=== PATIENT | female | born 1995 | race Caucasian/White ===

== ENCOUNTER 2020-09-02 14:03 | Emergency (ER) | payer OTHER, SELFPAY ==
[2020-09-02 14:16] VITALS: BP 121/75; PULSE 75; RESP 18; TEMP 36.4; O2SAT 98; BMI 30.4
--- NOTE | 2020-09-02 14:47 | W.ED.SOB ---
HPI - SOB/Dyspnea General: Chief Complaint: Shortness of Breath/Dyspnea Stated Complaint: COVID positive, chest pain Time Seen by Provider: 09/02/20 14:32 History of Present Illness: HPI Narrative: 25-year-old female patient presents to the emergency department with 24-hour complaint of shortness of breath. She reports shortness of breath only with exertion. She reports fever resolved 3 days ago. States eating and drinking okay. She denies sore throat, nasal drainage, or ear pain. She reports cough, nonproductive, denies wheezing. She reports concern of her oxygen saturation and shortness of breath. MD elicited complaint: shortness of breath and cough Pertinent past history: other (COVID positive, 08/27/2020) Context: recent illness Timing: intermittent and progressively worsening Severity: moderate Exacerbating factors: exertion Relieving factors: rest Associated symptoms: Reports other (extremity swelling/pain); Deny abdominal pain, chest congestion, chest pain, diaphoresis, fever(s), hemoptysis, lightheadedness, nausea, palpitations, syncope or vomiting Treatment prior to arrival: none Review of Systems General: Reports: 10 or more systems reviewed and unremarkable except in HPI and below Const: Reports: fatigue and malaise; Denies: fever(s), chills or diaphoresis Eyes: Denies: blurry vision or eye redness ENMT: Denies: throat pain, dental pain or disequilibrium Card: Reports: dyspnea on exertion; Denies: chest pain, palpitations, irregular heart rhythm, lightheadedness or syncope Resp: Reports: non-productive cough; Denies: dyspnea, productive cough, wheezing, pain on inspiration, hemoptysis or chest congestion GI: Denies: abdominal pain, nausea, vomiting or heartburn : Denies: difficulty voiding or dysuria Musc: Denies: back pain Skin/Breast: Denies: rash or pruritus Neuro: Denies: headache(s), weakness in extremities or behavioral changes Psych: Denies: anxiety or depression Bryan/Lymph: Denies: easy bruising [facility] ED Female Reproductive History: Date of last menstrual period: 08/23/20 Physical Exam Const: COMMON NORMALS: no acute distress, patient oriented x3, healthy appearing and alert GENERAL APPEARANCE: cooperative, comfortable and well hydrated HENMT: COMMON NORMALS: normocephalic, atraumatic, external ears normal, Normal external nose present and moist oral mucous membranes HEAD & SCALP: normocephalic and atraumatic FACE & SINUS: normal facial exam, sinuses nontender and face symmetric NOSE: Normal external nose present EXTERNAL EAR: Yes external ears normal MOUTH: Normal oral and palatal mucosa present THROAT: posterior oropharynx normal Eye: COMMON NORMALS: Equal, round and reactive pupils present and EOMs intact bilaterally GENERAL EYE: appearance normal, both eyes and all related structures PUPIL: Yes Equal, round and reactive pupils present Neck/C-Spine: COMMON NORMALS: full ROM and no lymphadenopathy GENERAL: Yes normal visual inspection and Yes trachea midline CERVICAL SPINE: Yes cervical ROM normal Lymph: LYMPHATIC: no lymphadenopathy noted Chest: COMMONS NORMALS: normal inspection of the chest and normal palpation of entire chest wall Resp: COMMON NORMALS: normal respiratory effort and clear to auscultation bilaterally AUSCULTATION: clear to auscultation bilaterally, no rhonchi, no wheezes and lung sounds not diminished Cardio: COMMON NORMALS: regular rhythm, S1 normal heart sound present, S2 normal heart sound present and Peripheral pulses 2+ throughout RHYTHM: regular rhythm HEART SOUNDS: S1 normal heart sound present and S2 normal heart sound present PERIPHERAL PULSES: Peripheral pulses 2+ throughout GI: COMMON NORMALS: Soft to palpation and non-tender INSPECTION: Yes normal to inspection PALPATION: Yes Soft to palpation : COMMON NORMALS: Yes no CVA tenderness BLADDER/KIDNEY EXAM: Yes no CVA tenderness Back/Pelvis: COMMON NORMALS: no CVA tenderness and thoracic and lumbar spine normal to inspection Extremity: COMMON NORMALS: normal to inspection and capillary refill normal Neuro: COMMON NORMALS: patient oriented x3 and no focal motor deficits SENSORIUM/ORIENTATION: Yes alert Psych: COMMON NORMALS: mental status grossly normal, Normal thought process present and cooperative ACTIVITY/MOTOR BEHAVIOR: Yes appropriate eye contact THOUGHT PROCESS: Normal thought process present Skin: COMMON NORMALS: no rashes or lesions noted and turgor normal GENERAL SKIN EXAM: no rashes or lesions noted and turgor normal Course ED course: 25-year-old female patient presents to the emergency department with COVID diagnosis on 08/27/2020. Her concern is shortness of breath with exertion. She reports trying to take care of ADLs at home and her family with shortness of breath. Fever resolved several days prior. O2 saturation on continuous pulse ox 99 to 100% on room air. She is not in distress. She does not want to stay in the hospital or have further examination/imaging completed. Option of pulse ox device here in the emergency department discussed, she agrees to go home with oxygen device and monitor her oxygen at home. She was advised to return to the emergency department if she developed hypoxia, oxygen saturation less than 90 to 91%. She was also sent home with an inhaler to help with shortness of breath. She denied nausea vomiting, able to tolerate oral fluids and food. She is requesting work note, one was provided for her with follow-up with her primary care provider to release to full duty. She was advised to return to the emergency department if she developed hemoptysis, worsening/progressive shortness of breath. Vital Signs: Vital signs: Vital Signs Temperature 97.8 F 09/02/20 14:57 Pulse Rate 70 09/02/20 14:57 Respiratory Rate 18 09/02/20 14:57 Blood Pressure 121/75 09/02/20 14:16 Pulse Oximetry 98 09/02/20 14:57 Discharge Plan Discharge Patient Disposition: Home Clinical Impression: COVID-19 virus detected, Acute bronchitis, viral Condition: Stable Prescriptions: New Ventolin HFA 90 mcg/actuation HFA aerosol inhaler 2 puff INHALATION Q4H PRN (Reason: shortness of breath or wheezing) Qty: 18 RF: 0 Discharge Orders: Discharge Order (Routine); Ordered 09/02/20 Ordered By: Елена Slade Discharge Diet: Usual diet Discharge Activity: Limit activity as instructed Patient Instructions: Viral Syndrome (ED) Activity Restrictions/Additional Instructions: Portable oxygen sensor has been given to you here in the emergency department, monitor oxygen saturation frequently. If oxygen saturation drops to 90%, and does not improve with deep breathing, you will need to return to the emergency department for evaluation. Limit activity, you will need to rest for the next several days. If you develop worsening shortness of breath, chest pain, difficulty breathing, difficulty catching her breath, you will need to return to the emergency department for further evaluation You may use Ventolin inhaler, 1 to 2 puffs as needed for shortness of breath/cough. Follow-up with your primary care provider in 3 to 4 days for your work release. You will need to remain in quarantine until follow-up with your primary care provider. Stand Alone Forms: Work/School Release Discharge Date/Time: 09/02/20 15:06 Coding Level of Care Code ED Truck Repair Supervisor for Chg Fwd Exam Comprehensive
[2020-09-02 14:57] VITALS: PULSE 70; RESP 18; TEMP 36.6; O2SAT 98
--- NOTE | 2020-09-03 08:20 | DCPLANNER ---
operations and maintenance manager had message to speak with patient about getting established with a primary care physician. operations and maintenance manager called , unable to speak with patient at this time, a voicemail was left for patient to return case folder phone call.
== END 2020-09-02 15:06 | disposition home or self-care (01) ==
PROVIDERS: Emergency Provider Nurse Practitioner Family
DX: U07.1 COVID-19 (principal); J20.8 Acute bronchitis due to other specified organisms
CPT/HCPCS: 12345; 99281; 99282

== ENCOUNTER 2021-06-14 11:38 | Emergency (ER) | payer OTHER, MEDICAID, SELFPAY ==
[2021-06-14 11:47] VITALS: BP 120/60; PULSE 90; RESP 18; TEMP 36.9; O2SAT 98; BMI 31.9
[2021-06-14 11:55] VITALS: BP 123/77; PULSE 105; RESP 16; O2SAT 97
[2021-06-14 12:33] LABS: Basophils % 0.4 %; Eosinophils # 0.1 10^3/uL (0.0-0.8); Eosinophils % 0.9 %; Hematocrit 36.8 % (37.0-47.0); Hemoglobin 12.1 g/dL (11.5-15.3); Lymphocytes # 1.1 10^3/uL (0.8-4.8); Lymphocytes % 10.3 %; Mean Corpuscular HGB Conc 32.9 g/dL (30.0-36.0); Mean Corpuscular Hemoglobin 27.4 pg (28.0-34.0); Mean Corpuscular Volume 83.4 fL (81-99); Mean Platelet Volume 11.3 fL (7.4-10.4); Monocytes # 0.6 10^3/uL (0.2-0.9); Monocytes % 5.4 %; Neutrophils # 8.41 10^3/uL (1.8-7.7); Neutrophils % 82.7 %; Nucleated Red Blood Cells % 0 %; Platelet Count 221 10^3/cmm (130-400); Red Blood Count 4.41 10^6/uL (4.1-5.3); Red Cell Distribution Width 13.6 % (12.1-15.1); White Blood Count 10.2 10^3/uL (4.0-10.0)
[2021-06-14 12:49] LABS: Alanine Aminotransferase 6 U/L (0-33); Albumin Level 3.3 g/dL (3.5-5.2); Alkaline Phosphatase 60 IU/L (35-105); Anion Gap 13.7 (5-19); Aspartate Amino Transferase 10 U/L (0-32); Blood Urea Nitrogen 6 mg/dL (6-20); Calcium 8.3 mg/dL (8.5-10.5); Carbon Dioxide 20 mmol/L (22-29); Chloride 104 mmol/L (98-107); Creatine Phosphokinase 25 U/L (26-192); Globulin 2.5 g/dL (1.3-4.6); Glomerular Filtration Rate 191.5 mL/min (90-130); Glucose 122 mg/dL (65-115); Osmolality Calculated 277 mOsm/kg (285-295); Potassium 3.7 mmol/L (3.5-5.1); Sodium 134 mmol/L (136-145); Total Bilirubin 0.3 mg/dL (0.15-1.2); Total Protein 5.8 g/dL (6.6-8.7)
--- NOTE | 2021-06-14 12:49 | ED_ITS ---
HPI - Seizure General: Chief Complaint: Seizure Stated Complaint: SEIZURE ACTIVITY/ 23 WKS Time Seen by Provider: 06/14/21 12:05 History of Present Illness: HPI Narrative: 25-year-old female presents emergency room she had 2 near syncopal episodes at home and then actually did have an episode where she passed out. She is about 23 weeks so she went to [facility] where she sees Dr. Zarco. She had another episode of a syncopal episode while sitting there is a question of seizure-like activity. Said she felt like she could not breathe and then passed out. She was disoriented briefly afterward but could remember all of the events did not really sound like she had a postictal state. No loss of bowel or bladder control she denies any vaginal discharge or bleeding. No fever sweats or chills. MD complaint: possible seizure Onset (ago): hour(s) Description of Episode: loss of consciousness Witnessed: Yes - by Bystander Trauma: No Seizure History: No Place: CLINIC Possible Precipitating Event: none Associated symptoms: Deny chest pain, chills, confusion, cough, diaphoresis, fever(s), anorexia, malaise, rash, short of breath, syncope or weakness Treatments prior to arrival: none Review of Systems Const: Denies: fever(s), chills, malaise or diaphoresis ENMT: Denies: throat pain, ear or mastoid pain, nasal discharge or nasal congestion Card: Denies: chest pain or syncope Resp: Denies: dyspnea, productive cough or non-productive cough GI: Denies: abdominal pain, nausea, vomiting, hematemesis, coffee ground emesis, diarrhea, constipation, bloating, hematochezia or melena : Denies: flank pain, difficulty voiding, dysuria, urinary frequency or urinary urgency Skin/Breast: Denies: rash or pruritus Neuro: Denies: confusion [facility] ED Female Reproductive History: Date of last menstrual period: 01/03/21 Physical Exam Const: COMMON NORMALS: no acute distress GENERAL APPEARANCE: cooperative and comfortable ORIENTATION/CONSCIOUSNESS: Yes awake, Yes oriented to person, Yes oriented to place and Yes oriented to time HENMT: COMMON NORMALS: normocephalic, atraumatic and hearing grossly normal bilaterally HEAD & SCALP: normocephalic and atraumatic Neck/C-Spine: COMMON NORMALS: no JVD Resp: COMMON NORMALS: normal respiratory effort, No retractions, No use of accessory muscles and clear to auscultation bilaterally AUSCULTATION: clear to auscultation bilaterally Cardio: COMMON NORMALS: no JVD, regular rate, regular rhythm and No murmurs present (Cardio) RATE: regular rate RHYTHM: regular rhythm GI: COMMON NORMALS: Soft to palpation and No hepatosplenomegaly present AUSCULTATION: Yes normoactive bowel sounds PALPATION: Yes Soft to palpation, No Tenderness to palpation present (GI), No Guarding due to palpation present (GI) and Yes No hepatosplenomegaly present Extremity: COMMON NORMALS: normal to inspection, capillary refill normal, no clubbing, cyanosis or edema, no calf tenderness and no pedal edema Neuro: SENSORIUM/ORIENTATION: Yes oriented to person, Yes oriented to place and Yes oriented to time Skin: COMMON NORMALS: no rashes or lesions noted GENERAL SKIN EXAM: no rashes or lesions noted Course Vital Signs: Vital signs: Vital Signs Temperature 98.4 F 06/14/21 11:47 Pulse Rate 93 06/14/21 14:00 Respiratory Rate 14 06/14/21 14:00 Blood Pressure 111/63 06/14/21 14:00 Pulse Oximetry 99 06/14/21 14:00 MDM - Seizure MDM Narrative: Medical decision making narrative: She is feeling better. Wearing Goeden discharge home I suspect she had a syncopal episode she does normally sound like she had a postictal episode given her age I do not really want to start her on antiseizure medications. Will have her follow-up with her primary care doctor. Also going to get her started on a 48-hour Holter she reported some tachycardia at home on a monitoring watch. Lab Data: Labs: Lab Results 06/14/21 06/14/21 06/14/21 Range/Units 11:29 11:29 13:59 WBC 10.2 H (4.0-10.0) 10^3/ uL RBC 4.41 (4.1-5.3) 10^6/u L Hgb 12.1 (11.5-15.3) g/dL Hct 36.8 L (37.0-47.0) % MCV 83.4 (81-99) fL MCH 27.4 L (28.0-34.0) pg MCHC 32.9 (30.0-36.0) g/dL RDW 13.6 (12.1-15.1) % Plt Count 221 (130-400) 10^3/c mm MPV 11.3 H (7.4-10.4) fL Neut % (Auto) 82.7 % Lymph % (Auto) 10.3 % Dickens % (Auto) 5.4 % Eos % (Auto) 0.9 % Baso % (Auto) 0.4 % Neut # (Auto) 8.41 H (1.8-7.7) 10^3/u L Lymph # (Auto) 1.1 (0.8-4.8) 10^3/u L Dickens # (Auto) 0.6 (0.2-0.9) 10^3/u L Eos # (Auto) 0.1 (0.0-0.8) 10^3/u L Baso # (Auto) 0.0 (0.0-0.1) 10^3/u L Nucleated RBC % (a uto) 0 % Nucleated RBCs # 0.0 /100WBC Sodium 134 L (136-145) mmol/L Potassium 3.7 (3.5-5.1) mmol/L Chloride 104 (98-107) mmol/L Carbon Dioxide 20 L (22-29) mmol/L Anion Gap 13.7 (5-19) BUN 6 (6-20) mg/dL Creatinine 0.4 L (0.5-0.9) mg/dL GFR Calculation 191.5 H (90-130) mL/min Glucose 122 H (65-115) mg/dL Calculated Osmolal ity 277 L (285-295) mOsm/k g Calcium 8.3 L (8.5-10.5) mg/dL Total Bilirubin 0.3 (0.15-1.2) mg/dL AST 10 (0-32) U/L ALT 6 (0-33) U/L Alkaline Phosphata se 60 (35-105) IU/L Creatine Kinase 25 L (26-192) U/L Total Protein 5.8 L (6.6-8.7) g/dL Albumin 3.3 L (3.5-5.2) g/dL Globulin 2.5 (1.3-4.6) g/dL Urine Color Yellow (Yellow) Urine Appearance Clear (CLEAR) Urine pH 8 H (5-7) Ur Specific Gravit y 1.010 (1.005-1.030) Urine Protein Neg (Negative) Urine Glucose (UA) Norm (Normal) Urine Ketones Negative (Negative) Urine Blood Neg (Negative) Urine Nitrate Negative (Negative) Urine Bilirubin Neg (Negative) Urine Urobilinogen Norm (Negative) mg/dL Ur Leukocyte Tammy ase Negative (Negative) Discharge Plan Discharge Patient Disposition: Home Clinical Impression: Syncope, Arrhythmia Condition: Stable Prescriptions: No Action 19 29 mg iron- 1 mg Tablet,Chewable 1 tab PO DAILY RF: 0 Discharge Orders: Discharge ED (Routine); Ordered 06/14/21 Ordered By: Colt Cook Referrals: Heath Zarco MD [Primary Care Provider] - Discharge Diet: Usual diet Discharge Activity: Increase activity as tolerated Patient Instructions: Opioid Safety Activity Restrictions/Additional Instructions: Case management will call to set you up for a 48-hour Holter monitor Coding Level of Care Code ED Trim Attacher for Chg Fwd Exam Comprehensive
[2021-06-14 13:51] VITALS: BP 119/67; PULSE 96; RESP 14; O2SAT 96
[2021-06-14 14:00] VITALS: BP 111/63; PULSE 93; RESP 14; O2SAT 99
[2021-06-14 14:10] LABS: Add Urine Microscopic? NO; Charge for UA Resulting for Rev
[2021-06-14 14:13] LABS: Bilirubin Urine Neg (Negative); Blood Urine Neg (Negative); Glucose Urine UA Norm (Normal); Ketones Urine Negative (Negative); Leukocyte Esterase Urine Negative (Negative); Nitrate Urine Negative (Negative); Protein Urine Neg (Negative); Urine Appearance Clear (CLEAR); Urine Color Yellow (Yellow); Urobilinogen Urine Norm (Negative); pH Urine 8 (5-7)
[2021-06-14] MEDS: sodium chloride 0.9% 1,000 ML 999 ML IV (14:52)
--- NOTE | 2021-06-15 14:01 | DCPLANNER ---
telecommunications manager had message to schedule a follow up appointment for patient for a 48 hour halter monitor. telecommunications manager faxed order for a 48 hour holter monitor, to [facility]. Clinic will call patient with appointment information.
--- NOTE | 2021-06-16 13:33 | DCPLANNER ---
Patient has a follow up appointment schedule for Monday, June 16, 2021 at 2:30 with [facility] for a 48 hour holter monitor. Clinic will call patient with appointment information.
--- NOTE | 2021-07-15 11:04 | DCPLANNER ---
Patient had a follow up appointment scheduled for 06.16.21 with [facility] - patient did attend appointment.
== END 2021-06-14 15:38 | disposition home or self-care (01) ==
PROVIDERS: Emergency Provider Family Medicine; PCP Family Medicine
DX: R55 Syncope and collapse (principal); I49.9 Cardiac arrhythmia, unspecified
CPT/HCPCS: 80053; 81003; 82550; 85025; 96360; 99284; J7030

== ENCOUNTER 2021-10-02 17:21 | Inpatient (IN) | payer OTHER, MEDICAID, SELFPAY ==
[2021-10-02] VITALS (72 sets, daily range): BP systolic 119–180; BP diastolic 56–97; PULSE 75–229; RESP 15; TEMP 35.9–36.9; O2SAT 80–100; BMI 34.3
[2021-10-02 17:55] LABS: Basophils % 0.3 %; Eosinophils # 0.1 10^3/uL (0.0-0.8); Eosinophils % 0.7 %; Hematocrit 36.1 % (37.0-47.0); Hemoglobin 12.2 g/dL (11.5-15.3); Lymphocytes # 1.8 10^3/uL (0.8-4.8); Mean Corpuscular HGB Conc 33.8 g/dL (30.0-36.0); Mean Corpuscular Hemoglobin 27.9 pg (28.0-34.0); Mean Corpuscular Volume 82.6 fl (81-99); Mean Platelet Volume 11.4 fL (7.4-10.4); Monocytes # 0.9 10^3/uL (0.2-0.9); Monocytes % 7.5 %; Neutrophils # 8.96 10^3/uL (1.8-7.7); Neutrophils % 75.7 %; Nucleated Red Blood Cells % 0 %; Platelet Count 198 10^3/cmm (130-400); Red Blood Count 4.37 10^6/uL (4.1-5.3); Red Cell Distribution Width 13.9 % (12.1-15.1); White Blood Count 11.8 10^3/uL (4.0-10.0)
[2021-10-02] MEDS: dextrose 5%-lactated ringers 1,000 ML 125 ML IV (18:17)
[2021-10-02] MEDS: ampicillin 2,000 MG in sodium chloride 0.9% (plus) 50 ML 100 MG IV (18:17)
[2021-10-02] MEDS: oxytocin 30 UNIT/500 ML BAG IV (18:18)
[2021-10-02] MEDS: lactated ringers 1,000 ML 999 ML IV (20:22)
--- NOTE | 2021-10-02 20:57 | PM.OPHPUD ---
Labor & Delivery H&P Update Date of Procedure: October 02, 2021 Date H&P Performed: 10/01/21 H&P update information: I have reviewed H&P completed within last 30 days, I have examined patient prior to procedure and Changes to prior documentation as noted here (Patient had spontaneous rupture membranes at home. Upon arrival there was very little change except the ruptured membranes. Presently, she is having pain and contractions with Pitocin addition. She is now 6 cm dilated.) Changes to previous documentation: Patient is now 6 cm dilated after spontaneous rupture of membranes and Pitocin augmentation. Admission Diagnosis: Planned procedure: Plan spontaneous vaginal delivery.
--- NOTE | 2021-10-02 21:25 | ANES.PREANE2 ---
Pre-Anesthetic Assessment Pre-Anesthetic Assessment: Height/Weight: Height 5 ft 8 in Weight 102.512 kg Temp Pulse Resp BP Pulse Ox 97.3 F L 87 15 126/56 98 10/02/21 20:17 10/02/21 21:57 10/02/21 17:24 10/02/21 21:55 10/02/21 21:57 Preop Diagnosis: IUP Proposed Procedure: labor epidural Was Beta Faheem taken within 24 hours: N/A Was Clonidine taken within 24 hours: N/A Social: Social History: No alcohol and No tobacco Exam: Pre-Anes Outpt Exam: alert, oriented x 3, clear to auscultation bilaterally and regular rate & rhythm Airway: Submandibular: WNL Cervical ROM: WNL MP: 1 History/ROS: No significant history except as noted Pulmonary: Pulmonary: None reported CV/HEM: CV/HEM: None reported : : None reported Hepatic: Hepatic: None reported GI: GI: None reported Metabolic: Metabolic: None reported Musc/skel: Musc/skel: None reported Neuropsych: Neuropsych: None reported Anesthetic Plan: ASA status: 1 Anesthesia: Anesthesia Evaluation Risk of > 500 ml blood loss (7ml/kg in children): No Meds/Allergies Current Medications: Current Medications Generic Name Dose Route Start Last Admin Trade Name Freq PRN Reason Stop Dose Admin Dextrose/Lactated Ringer's 1,000 mls @ 125 m ls/hr 10/02/21 17:30 10/02/21 18:17 Dextrose 5%-Lact ated Ringers IV 125 mls/hr .Q8H CAR Administration Ampicillin Sodium 1,000 mg/ 50 mls @ 100 mls/ hr 10/02/21 21:30 10/02/21 21:47 Sodium Chloride IV 100 mls/hr Q4H CAR Administration Protocol Oxytocin 30 unit in 500 ml s @ 1 mls/hr 10/02/21 17:30 10/02/21 20:30 Pitocin IV 10 milliunit/min .Q24H CAR 10 mls/hr Titration Protocol 1 MILLIUNIT/MIN Ropivacaine 200 mg in 100 mls @ 13 mls/hr 10/02/21 17:30 10/02/21 21:44 Naropin Premix EPIDURAL 13 mls/hr .Q7H42M CAR Administration Lactated Ringer's 1,000 mls @ 999 m ls/hr 10/02/21 17:26 10/02/21 20:22 Lactated Ringers IV 999 mls/hr .Q1H1M PRN Administration See label comment s PFSH Anesthesia Female Reproductive History: Date of last menstrual period: 01/03/21 : 2 Data Anesthesia CBC & Chem 7: 10/02/21 17:34 Other Labs: Laboratory Results - last 48 hr 10/02/21 17:34 WBC 11.8 H RBC 4.37 Hgb 12.2 Hct 36.1 L MCV 82.6 MCH 27.9 L MCHC 33.8 RDW 13.9 Plt Count 198 MPV 11.4 H Neut % (Auto) 75.7 Lymph % (Auto) 15.0 [place] % (Auto) 7.5 Eos % (Auto) 0.7 Baso % (Auto) 0.3 Neut # (Auto) 8.96 H Lymph # (Auto) 1.8 [place] # (Auto) 0.9 Eos # (Auto) 0.1 Baso # (Auto) 0.0 Nucleated RBC % (auto) 0 Nucleated RBCs # 0.0 Cardiac Studies: Holter Monitor 06/17/21
[2021-10-02] MEDS: ampicillin 1,000 MG in sodium chloride 0.9% (plus) 50 ML 100 MG IV (21:47)
--- NOTE | 2021-10-02 22:00 | ANES.PROC ---
Anesthesia Procedures Procedure/Date: 10/02/21 Epidural: Time Out Performed: Yes Consents Signed: Procedure Consent Consent: requested by attending/covering physician Lumbar Level: L3-L4 Epidural position: sitting Epidural procedure: sterile prep of area, 1% lidocaine to numb the area, 18 g needle, negative for paresthesia passed, neg for paresthesia, test dose given, 1.5% xylocaine 1:200k epi (4ml), placed PCEA, no systemic response, sterile dressing applied, L.U.D. no apparent complications and 0.2% Ropiavacaine @ mls/hr (13)
[2021-10-03] VITALS (50 sets, daily range): BP systolic 101–163; BP diastolic 51–84; PULSE 85–135; RESP 18; TEMP 36.3–36.7; O2SAT 97–100
--- NOTE | 2021-10-03 01:03 | P.PCNOB_ITS ---
Delivery Note: Date of delivery: October 03, 2021 Pre-Delivery Course: This patient was followed by this physician throughout her course. There were no major problems or concerns throughout the . Maternal blood type was B+ with antibody negative. Rubella was immune. Group B strep was positive but mom did receive at least 2 doses of intravenous antibiotics prior to delivery. There were no other complications and mom had spontaneous rupture membranes at home and it was clear. Delivery: This 26-year-old female with an EDC of 10/09/2021 at 39 weeks and 0 days gestation had spontaneous rupture membranes at home. She called to [facility] labor delivery and they recommended that she come in. She was allie irregularly but had definite rupture of membranes. She was given Pitocin for augmentation and dilated to almost 6 cm dilated and received epidural anesthesia. She then slowly dilated over the next 2 or 3 hours to complete cervical dilatation and delivered by spontaneous vaginal delivery healthy, viable male infant at 12 24. The delivered in the left occiput anterior position with suctioning of the mouth and nose at the perineum followed by delivery of the right shoulder anteriorly in the left posterior shoulder. The remainder of the delivered easily. The infant was then suctioned again and placed on mother's abdomen where after approximately 1 minute the umbilical cord was clamped and then cut by the 's father. There was a nuchal cord x1 that was easily unwrapped as the cord was long the cord did have 3 blood vessels. Infant cried well at and had Apgars of 8 and 8 at 1 and 5 minutes respectively. The infant weighed 8 pounds 8 ounces. The placenta delivered spontaneously at and appeared to be intact on inspection. There was a midline second-degree perineal and mild vaginal laceration. This was repaired with 3-0 Vicryl suture in a layered fashion. Estimated blood loss approximately 384 mL. There were no complications at present time, the mother and infant are doing well. Post-Delivery Status: Patient is doing very well at this time and appears to be hemodynamically stable. She will be followed for routine postdelivery care. A&P Assessment and plan (1) Normal spontaneous vaginal delivery: Patient is doing well at this time and will be followed for routine postdelivery care. We will adjust orders as necessary. Status: Acute Coding Level of Care Code Acute Weight Loss Consultant for Chg Fwd Diagnoses Normal spontaneous vaginal delivery O80
[2021-10-03] MEDS: ampicillin 1,000 MG in sodium chloride 0.9% (plus) 50 ML 100 MG IV (01:18)
[2021-10-03] MEDS: docusate sodium 100 mg Capsule PO (08:17)
[2021-10-03] MEDS: ibuprofen 800 mg tablet PO ×3 (08:17→21:15)
[2021-10-03] MEDS: prenatal vitamin Capsule 1 CAP PO (08:17)
--- NOTE | 2021-10-03 09:41 | ANE.PACU2 ---
Inpatient post-anesthesia follow up: Airway intact: Yes Vital signs: Temperature 98.0 F Pulse Rate 85 Respiratory Rate 18 Blood Pressure 138/73 Pulse Oximetry 98 Oxygen Delivery Me thod Room Air Oxygen Flow Rate Fraction of Inspir ed Oxygen Hydration adequate: Yes Nausea and vomiting: No Pain level: 2 Mental status: Baseline
--- NOTE | 2021-10-03 14:47 | PM.OBGYPN ---
PELT INSPECTOR Subjective Labor: Station: -1 Amniotic Membrane Status: Ruptured Monitor Mode: External Contraction Pattern: Regular Status: Category I Vitals/I&O/Wt Last Vital Signs Temp 97.3 F L 10/03/21 10:27 Pulse 88 10/03/21 10:27 Resp 18 10/03/21 01:02 PUBLICATIONS DISTRIBUTION CLERK BP 147/83 10/03/21 10:27 Pulse Ox 100 10/03/21 01:17 PUBLICATIONS DISTRIBUTION CLERK 10/02/21 10/03/21 10/03/21 23:59 06:59 14:59 Intake Total Output Total Balance Weight last 48 hrs Weight 102.512 kg Physical Exam Narrative: EXAM NARRATIVE: Patient is doing well and has just mild lochia. No significant cramping or clots. She is ambulating well and tolerating a regular diet. The is breast-feeding well. Const: COMMON NORMALS: no acute distress and well nourished HENMT: COMMON NORMALS: moist oral mucous membranes Resp: COMMON NORMALS: normal respiratory effort, No retractions and No use of accessory muscles Cardio: COMMON NORMALS: regular rate, regular rhythm and No murmurs present (Cardio) RATE: regular rate RHYTHM: regular rhythm GI: COMMON NORMALS: Normal to inspection, nondistended, normoactive bowel sounds present and Soft to palpation (Fundus is firm and well below the umbilicus.) PALPATION: Yes Soft to palpation (Fundus is firm and well below the umbilicus.) Extremity: COMMON NORMALS: normal to inspection, full ROM, capillary refill normal, no calf tenderness and no pedal edema Neuro: COMMON NORMALS: moves all extremities, no focal motor deficits and no sensory deficits noted Psych: COMMON NORMALS: Normal thought process present and cooperative THOUGHT PROCESS: Normal thought process present Urinary Catheter Management^: [place]: Cath Placed During This Visit: yes, but has since been removed by the nurse Reason for Continuing Indwelling Catheter: Decision to DC Catheter Urinary Catheter Date of Insertion: 10/02/21 Urinary Catheter Time of Insertion: 22:10 Date Urinary Catheter Removed: 10/03/21 Time Urinary Catheter Discontinued: :22 Data : 10/02/21 17:34 A&P Assessment and plan (1) Normal spontaneous vaginal delivery: Continues doing well at this time and probable discharge tomorrow. Status: Acute Attestations Medical Necessity Statement*: Patient delivered early this morning and will require hospital stay until tomorrow. Coding Level of Care Code Acute Letterpress Printing Machinist for Chg Fwd Diagnoses Normal spontaneous vaginal delivery O80
[2021-10-03 14:58] LABS: Hematocrit 31.1 % (37.0-47.0); Hemoglobin 10.3 g/dL (11.5-15.3); Mean Corpuscular HGB Conc 33.1 g/dL (30.0-36.0); Mean Corpuscular Volume 84.5 fl (81-99); Mean Platelet Volume 11.2 fL (7.4-10.4); Platelet Count 189 10^3/cmm (130-400); Red Blood Count 3.68 10^6/uL (4.1-5.3); Red Cell Distribution Width 14.3 % (12.1-15.1); White Blood Count 14.1 10^3/uL (4.0-10.0)
[2021-10-04 01:02] VITALS: RESP 17
[2021-10-04 04:12] VITALS: BP 136/74; PULSE 80
--- NOTE | 2021-10-04 07:11 | PM.OBGYDC ---
Discharge Providers PROVIDER RELATIONS CONSULTANT Date of Admission: 10/02/21 17:21 Date of Discharge: 10/04/21 Attending Provider at Admission: Heath Zarco MD Attending Provider at Discharge: Heath Zarco MD Primary Care Provider: Heath Zarco MD Diagnoses at Discharge Discharge Diagnosis (1) Normal spontaneous vaginal delivery: Status: Acute Reason for Visit Reason for Visit: Possible ROM Hospital Course Hospital Course Patient was admitted on the day of admission with spontaneous rupture membranes at home. Upon arrival to the labor and delivery department she was found to have grossly ruptured membranes. As she was not allie she was started on Pitocin augmentation. She did receive epidural anesthesia and was able deliver very early yesterday morning by spontaneous vaginal delivery a healthy, viable male . She has done well postdelivery. She has had just mild lochia with no significant cramps or clots. The is breast-feeding very well. She is tolerating regular diet and ambulating well and is felt to be stable for discharge. Information Peripartum Data: Delivery Method: Vaginal Physical Exam Const: COMMON NORMALS: no acute distress, no limitations and healthy appearing HENMT: COMMON NORMALS: moist oral mucous membranes Resp: COMMON NORMALS: normal respiratory effort, No retractions, No use of accessory muscles and clear to auscultation bilaterally AUSCULTATION: clear to auscultation bilaterally Cardio: COMMON NORMALS: regular rate, regular rhythm and No murmurs present (Cardio) RATE: regular rate RHYTHM: regular rhythm GI: COMMON NORMALS: Normal to inspection, nondistended, normoactive bowel sounds present, Soft to palpation (Fundus is firm and well below the umbilicus.) and non-tender PALPATION: Yes Soft to palpation (Fundus is firm and well below the umbilicus.) Extremity: COMMON NORMALS: normal to inspection, full ROM, capillary refill normal, no clubbing, cyanosis or edema and no calf tenderness Neuro: COMMON NORMALS: no focal motor deficits and no sensory deficits noted Psych: COMMON NORMALS: mental status grossly normal, Normal thought process present, cooperative and normal affect THOUGHT PROCESS: Normal thought process present Urinary Catheter Management^: [place]: Cath Placed During This Visit: yes, but has since been removed by the nurse Reason for Continuing Indwelling Catheter: Decision to DC Catheter Urinary Catheter Date of Insertion: 10/02/21 Urinary Catheter Time of Insertion: 22:10 Date Urinary Catheter Removed: 11/07/21 Time Urinary Catheter Discontinued: 01:22 Discharge Data Data Completed and Pending: Labs from last 24 hours 10/03/21 14:39 WBC 14.1 H RBC 3.68 L Hgb 10.3 L Hct 31.1 L MCV 84.5 MCH 28.0 MCHC 33.1 RDW 14.3 Plt Count 189 MPV 11.2 H Vitals: Last Vital Signs Temp 97.5 F L 10/03/21 14:57 Pulse 80 10/04/21 04:12 Resp 17 10/04/21 01:02 BP 136/74 10/04/21 04:12 Pulse Ox 100 10/03/21 01:17 CS T Discharge Plan Discharge Patient Disposition: Home Condition: Stable Prescriptions: New docusate sodium 100 mg Capsule 100 mg PO BID Qty: 60 RF: 1 ibuprofen 800 mg Tablet 800 mg PO TID PRN (Reason: Pain, Moderate) Qty: 90 RF: 1 Continued 19 29 mg iron- 1 mg Tablet,Chewable 1 tab PO DAILY RF: 0 Discharge Orders: Discharge Order (Routine); Ordered 10/04/21 Ordered By: Heath Zarco Referrals: Heath Zarco MD [Primary Care Provider] - 6 Weeks Discharge Diet: Usual diet Discharge Activity: Resume usual activity Patient Instructions: Opioid Safety Discharge Attestations PROVIDER RELATIONS CONSULTANT Time Spent in Discharge Care*: less than 30 min Specific Discharge Activities: Specific discharge activities: educating patient, documenting/other paperwork and evaluating patient/reviewing data Coding Level of Care Code Acute Tank 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
[2021-10-04] MEDS: ibuprofen 800 mg tablet PO (08:35)
[2021-10-04] MEDS: docusate sodium 100 mg Capsule PO (08:35)
[2021-10-04 09:20] VITALS: BP 138/73; PULSE 85; RESP 18; TEMP 36.7; O2SAT 98
[2021-10-04] MEDS: prenatal vitamin Capsule 1 CAP PO (10:00)
== END 2021-10-04 10:35 | disposition home or self-care (01) | DRG 807 ==
LOC: OPOB 17:27 → OBGYN 17:27
PROVIDERS: Admitting Provider Family Medicine; PCP Family Medicine; Visit Provider Family Medicine
DX: O99.824 Streptococcus B carrier state complicating childbirth (principal); Z37.0 Single live birth; O69.2XX0 Labor and delivery complicated by other cord entanglement, with compression, not applicable or unspecified; O70.1 Second degree perineal laceration during delivery; Z3A.39 39 weeks gestation of pregnancy
CPT/HCPCS: 36415; 51702; 59025; 59409; 85025; 85027; 99211; J0290; J2795